=== PATIENT | female | born 1975 | race Caucasian/White ===

== ENCOUNTER 2016-08-18 14:29 | Emergency (ER) | payer SELFPAY ==
--- NOTE | 2016-08-18 15:16 | Emergency Department Report ---
Entered by JESSE PARR, acting as scribe for CHEN SALES NP. Chief Complaint: Urogenital-Female Stated Complaint: KIDNEY PAIN,UTI - HPI History of Present Illness: 40 y/o female, nontoxic, NAD, well developed, PMHx of renal failure and kidney stones c/o UTI. Associated clear vaginal discharge, burning and painful urination, increased urinary frequency, and back pain radiating to the pelvic area. Denies, abdominal pain, fever, NVD, chills, JOHNS, CP, SOB, blurry vision, dizziness. Patient states symptoms are consistent with past UTI - Exam Vital Signs: Vital Signs 08/18/16 14:38 Temperature 98.6 F Pulse Rate 80 Respiratory 18 Rate Blood Pressure 156/103 O2 Sat by Pulse 100 Oximetry Physical Exam: GENERAL: The patient is a well-developed, well-nourished male in no apparent distress. Patient is alert and oriented x3. ABDOMEN: Soft, nontender, and nondistended. Positive bowel sounds. Positive left CVA tenderness. Positive pelvic pain. No hepatosplenomegaly was noted. No guarding or rebound tenderness, negative epigastric bruit. Negative psoas sign, negative wilde sign, negative McBurneys sign MSE screening note: Focused history and physical exam performed. Due to findings the following was ordered: CBC, CMP, UA, Serum test ED Disposition for MSE Condition: Stable This documentation as recorded by the scribe,JESSE PARR,accurately reflects the service I personally performed and the decisions made by me,CHEN SALES, JOYA.
[2016-08-18 15:31] LABS: Basophils % (Auto) 0.5 % (0.0-1.8); Eosinophils % (Auto) 2.4 % (0.0-4.3); Hematocrit 40.7 % (30.3-42.9); Hemoglobin 13.6 gm/dl (10.1-14.3); Mean Corpuscular HGB Conc 33 % (30-34); Mean Corpuscular Hemoglobin 28 pg (28-32); Mean Corpuscular Volume 85 fl (79-97); Platelet Count 260 K/mm3 (140-440); Red Blood Count 4.78 M/mm3 (3.65-5.03); White Blood Count 9.6 K/mm3 (4.5-11.0)
[2016-08-18 15:51] LABS: Bilirubin,Urine NEG (Negative); Blood,Urine MOD (Negative); Ketones,Urine NEG (Negative); Leukocyte Esterase,Urine TR (Negative); Nitrite,Urine NEG (Negative); Urobilinogen,Urine < 2.0 mg/dL (<2.0)
[2016-08-18 15:52] LABS: Alanine Aminotransferase 17 units/L (7-56); Albumin 4.2 g/dL (3.9-5); Albumin/Globulin Ratio 1.2 %; Alkaline Phosphatase 85 units/L (35-129); Anion Gap 20 mmol/L; Blood Urea Nitrogen 10 mg/dL (7-17); Calcium 8.9 mg/dL (8.4-10.2); Carbon Dioxide 22 mmol/L (22-30); Chloride 98.1 mmol/L (98-107); Glucose 161 mg/dL (65-100); Potassium 3.7 mmol/L (3.6-5.0); Sodium 136 mmol/L (137-145); Total Protein 7.6 g/dL (6.3-8.2)
[2016-08-18 15:53] LABS: Mucus,Urine FEW /HPF
[2016-08-19] MEDS ORDERED: NACL 0.9% 1000 ML 1,000 ML IV ONE (08:59)
[2016-08-19] MEDS ORDERED: TORADOL IV ONE (08:59)
[2016-08-19] MEDS ORDERED: NACL 0.9% 1000 ML 1,000 ML ONE (08:59)
[2016-08-19] MEDS ORDERED: ZOFRAN IV ONE (08:59)
[2016-08-19] MEDS ORDERED: TORADOL ONE (08:59)
[2016-08-19] MEDS ORDERED: ZOFRAN ONE (08:59)
--- NOTE | 2016-08-19 09:03 | Emergency Department Report ---
ED Abdominal Pain HPI - General Chief Complaint: Urogenital-Female Stated Complaint: KIDNEY PAIN,UTI Time Seen by Provider: 08/19/16 08:48 Source: patient Mode of arrival: Ambulatory Limitations: No Limitations - History of Present Illness Initial Comments: 40-year-old female presents to the emergency department complaining of possible UTI. She states for the past 2 days she has been having left-sided kidney pain. She reports associated urinary frequency, urgency, and burning. She also reports lower back pain radiating into her pelvis. Patient denies seeing any blood. She also denies fever. She does report nausea and vomiting. There are no other complaints. MD Complaint: flank pain -: Gradual, days(s) (2) Location: L flank Radiation: none Migration to: no migration Severity: severe Severity scale (0 -10): 8 Quality: sharp Consistency: intermittent Improves With: nothing Worsens With: nothing Associated Symptoms: nausea, vomiting, dysuria - Related Data Previous Rx's Medication Instructions Recorded Last Taken Type Pantoprazole Sodium [Protonix] 40 mg PO DAILY #30 tablet. 06/19/14 11/08/14 Rx Promethazine [Phenergan TAB] 25 mg PO Q6H PRN #14 tablet 08/19/16 Unknown Rx oxyCODONE /ACETAMINOPHEN [Percocet 1 tab PO Q6HR PRN #20 tablet 08/19/16 Unknown Rx 5/325] Allergies Allergy/AdvReac Type Severity Reaction Status Date / Time No Known Allergies Allergy Verified 10/22/15 02:21 ED Review of Systems ROS: Stated complaint: KIDNEY PAIN,UTI Other details as noted in HPI Comment: All other systems reviewed and negative Gastrointestinal: as per HPI, nausea, vomiting Genitourinary: urgency, dysuria, frequency Musculoskeletal: back pain ED Past Medical Hx - Past Medical History Previous Medical History?: Yes Hx Hypertension: Yes (PIH) Hx CVA: No Hx Heart Attack/AMI: No Hx Congestive Heart Failure: No Hx Diabetes: Yes (not on meds) Hx Deep Vein Thrombosis: No Hx Pulmonary Embolism: No Hx GERD: No Hx Liver Disease: Yes (hx chronic pancreatitis last 2 mths ago) Hx Sickle Cell Disease: No Hx Arthritis: No Hx Headaches / Migraines: No Hx Seizures: No Hx Kidney Stones: Yes (laser treatment) Hx Psychiatric Treatment: No Hx Asthma: Yes Hx COPD: No Hx Dementia: No Hx HIV: No Additional medical history: Chronic pancreatitis, chronic renal insufficiency, Jaundice - Surgical History Past Surgical History?: Yes Hx Coronary Stent: No Hx Open Heart Surgery: No Hx Pacemaker: No Hx Internal Defibrillator: No Hx Cholecystectomy: Yes (Age 17) Hx Appendectomy: No Hx Breast Surgery: No Additional Surgical History: 3 x kindey stent replaced (Dr Connor), 3 hernia repairs, surgery for adhesions - Family History Family history: no significant - Social History Smoking Status: Never Smoker Substance Use Type: None - Medications Home Medications: Home Medications Medication Instructions Recorded Confirmed Last Taken Type Pantoprazole Sodium [Protonix] 40 mg PO DAILY #30 tablet. 06/19/14 11/10/14 Rx Promethazine [Phenergan TAB] 25 mg PO Q6H PRN #14 tablet 08/19/16 Unknown Rx oxyCODONE /ACETAMINOPHEN [Percocet 1 tab PO Q6HR PRN #20 tablet 08/19/16 Unknown Rx 5/325] ED Physical Exam - General Limitations: No Limitations General appearance: alert, in no apparent distress - Head Head exam: Present: atraumatic, normocephalic - Eye Eye exam: Present: normal appearance, PERRL, EOMI - ENT ENT exam: Present: normal exam, normal orophraynx, mucous membranes moist - Neck Neck exam: Present: normal inspection, full ROM. Absent: tenderness - Respiratory Respiratory exam: Present: normal lung sounds bilaterally. Absent: respiratory distress - Cardiovascular Cardiovascular Exam: Present: regular rate, normal rhythm, normal heart sounds - GI/Abdominal GI/Abdominal exam: Present: soft, tenderness (mild left lower quadrant and left flank tenderness to palpation), normal bowel sounds. Absent: distended, guarding, rebound - Extremities Exam Extremities exam: Present: normal inspection, full ROM. Absent: tenderness - Back Exam Back exam: Present: normal inspection, full ROM, tenderness, CVA tenderness (L) . Absent: CVA tenderness (R), muscle spasm, paraspinal tenderness, vertebral tenderness - Neurological Exam Neurological exam: Present: alert, oriented X3. Absent: motor sensory deficit - Skin Skin exam: Present: warm, dry, intact ED Course Vital Signs 08/18/16 08/19/16 08/19/16 14:38 03:22 08:07 Temperature 98.6 F 98.8 F Pulse Rate 80 96 H 87 Respiratory 18 14 18 Rate Blood Pressure 156/103 154/105 Blood Pressure 143/92 [Left] O2 Sat by Pulse 100 98 96 Oximetry 08/19/16 08/19/16 08:08 11:08 Temperature Pulse Rate 88 Respiratory 16 Rate Blood Pressure Blood Pressure 127/76 [Left] O2 Sat by Pulse 95 97 Oximetry ED Medical Decision Making - Lab Data Result diagrams: 08/18/16 15:14 08/18/16 15:14 - Radiology Data Radiology results: report reviewed CT of the abdomen and pelvis reveals 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 There appeared to be multiple stones in the inferior moiety. There is a 6 x 7 x 9 mm stone in the superior moiety. There are no other acute abnormalities. - Medical Decision Making Lab and imaging results reviewed and discussed with the patient. I spoke with Dr. Connor, urology. Patient will be discharged home at this time to follow- up as an outpatient. - Differential Diagnosis UTI, pyelonephritis, renal stone, renal failure Critical care attestation.: If time is entered above; I have spent that time in minutes in the direct care of this critically ill patient, excluding procedure time. ED Disposition Clinical Impression: Ureterolithiasis Disposition: DISCHARGED TO HOME OR SELFCARE Is pt being admited?: No Condition: Stable Instructions: Kidney Stones (ED) Prescriptions: oxyCODONE /ACETAMINOPHEN [Percocet 5/325] 1 tab PO Q6HR PRN #20 tablet PRN Reason: Pain Promethazine [Phenergan TAB] 25 mg PO Q6H PRN #14 tablet PRN Reason: Nausea Referrals: ISABEL CONNOR MD [Staff Physician] - 3-5 Days Time of Disposition: 11:22
[2016-08-19] MEDS ORDERED: MORPHINE IV ONE (09:23)
--- NOTE | 2016-08-19 10:00 | Cat Scan Report ---
CT OF THE ABDOMEN AND PELVIS WITHOUT CONTRAST HISTORY: Left flank pain. TECHNIQUE: Helical CT without contrast. Sagittal and coronal reformatted images. FINDINGS: Compared to 10/31/15 CT abdomen pelvis with contrast. The right kidney and right renal collecting system are normal. A duplicated collecting system is evident in the left kidney. There are 3 or 4 calyceal stones in the superior moiety measuring up to 3 mm. There are 2 or 3 calyceal stones in the inferior moiety measuring up to 2 mm. There is a new left ureteral stone in the upper moiety ureter measuring 6 x 7 x 9 mm. There is mild pyelocaliectasis in the superior moiety. The ureters appear to fuse at the approximate L4 level. The UVJs and bladder are normal. The gallbladder has been surgically removed. Ventral wall hernia changes are again noted and unchanged. The liver, pancreas, spleen, right adrenal gland, bowel loops, uterus and adnexa are within normal limits. 1 cm left adrenal adenoma is unchanged. The bony structures are intact. The visualized lung bases are clear. Normal heart size. IMPRESSION: Left nephrolithiasis as described above. 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 There is a new left ureteral stone in the superior moiety of the duplicated collecting system measuring 9 mm which minimally obstructs. Please see above.
[2016-08-19] MEDS ORDERED: DILAUDID IV ONE (10:09)
[2016-08-19 11:08] VITALS: BP 127/76
== END 2016-08-19 11:37 | disposition home or self-care (01) ==
LOC: ED 14:29
DX: N20.1 Calculus of ureter (principal); I10 Essential (primary) hypertension; E11.9 Type 2 diabetes mellitus without complications
CPT/HCPCS: 36415; 74176; 80053; 81001; 84703; 85025; 96361; 96374; 96375; 99284; J1170; J1885; J2270; J2405; J7030

== ENCOUNTER 2016-09-24 06:54 | Day surgery (SDC) | payer MEDICAID ==
[2016-09-24] MEDS ORDERED: NACL 0.9% 1000 ML 1,000 ML IV SCH (10:00)
--- NOTE | 2016-09-24 10:55 | Discharge Summary ---
Providers - Providers Date of discharge: 09/24/16 Attending physician: SCOOBY ROSS Primary care physician: EMILY COLINDRES Hospitalization Condition: Good Disposition: DC-01 TO HOME OR SELFCARE Core Measure Documentation - Palliative Care Palliative Care/ Comfort Measures: Not Applicable - Core Measures Any of the following diagnoses?: none Exam - Physical Exam Narrative exam: unchanged from pre-op - Constitutional Vitals: Temp Pulse Resp BP Pulse Ox 98.3 F 72 129/83 19 L 09/24/16 09:51 09/24/16 09:51 09/24/16 09:51 09/24/16 09:51 Plan Activity: no restrictions Diet: regular Follow up with: EMILY COLINDRES MD [Primary Care Provider] - 7 Days
--- NOTE | 2016-09-24 10:56 | Operative Report ---
Operative Report Operative Report: OPERATIVE REPORT - EGD DATE 09/24/16 SURGERY: Upper endoscopy. SURGEON: Elizabeth Rao M.D. PELOTA MAKER: n/a PRE OP DX:dypspepsia POST OP DX:hiatal hernia TYPE OF ANESTHESIA: MAC. ESTIMATED BLOOD LOSS: None. COMPLICATIONS: None. SPECIMENS REMOVED: None. FINDINGS: 1. Small hiatal hernia. 2. Otherwise, normal esophagus, stomach and first portion of duodenum. INDICATIONS:INDICATION FOR PROCEDURE: Patient is a 41-year-old female with a long history of morbid obesity. She is planned to have a weight loss procedure and is here for preoperative planning EGD. PROCEDURE DETAILS: After consent was reviewed, patient was taken back to the operating room where patient was placed in the left lateral decubitus position and a bite block was placed in the mouth. After a time-out was called, MAC anesthesia was initiated. I then passed the endoscope into her oropharynx, into her esophagus, visualized the entire esophagus, which was all within normal limits. I then visualized the stomach and the first portion of the duodenum and there were no abnormalities I could clearly visualize. I then retroflexed the scope in the stomach and visualized the hiatus and I could see a small hiatal hernia. I then desufflated the stomach and removed the endoscope. Patient tolerated procedure well and was transferred to recovery room in good and stable condition.
[2016-09-24] MEDS ORDERED: DIPRIVAN 10 MG/ML IV ONE ×2 (11:37)
--- NOTE | 2016-09-24 12:42 | Anesthesia Consultation ---
Anesthesia Consult and Med Hx Date of service: 09/24/16 - Airway Anesthetic Teeth Evaluation: Good ROM Head & Neck: Adequate Mental/Hyoid Distance: Adequate Mallampati Class: Class II Intubation Access Assessment: Probably Good - Pulmonary Exam CTA: Yes - Cardiac Exam Cardiac Exam: RRR - Pre-Operative Health Status ASA Pre-Surgery Classification: ASA3 Proposed Anesthetic Plan: MAC - Pulmonary Hx Smoking: Yes (stopped 5 yrs ago) Hx Asthma: Yes COPD: No Hx Pneumonia: No - Cardiovascular System Hx Hypertension: Yes (PIH) Hx Coronary Artery Disease: No Hx Heart Attack/AMI: No Hx Angina: No Hx Percutaneous Transluminal Coronary Angioplasty (PTCA): No Hx Pacemaker: No Hx Internal Defibrillator: No Hx Valvular Heart Disease: No Hx Heart Murmur: No Hx Peripheral Vascular Disease: No - Central Nervous System Hx Seizures: No CVA: No Hx Psychiatric Problems: No - Gastrointestinal Hx Gastroesophageal Reflux Disease: Yes (h/o pancreatitis 2011) - Endocrine Hx Renal Disease: Yes (ureteral stone; pt has occluded stent) Hx End Stage Renal Disease: No Hx Liver Disease: Yes (hx chronic pancreatitis last 2 mths ago) Hx Non-Insulin Dependent Diabetes: Yes (diet controlled; no longer on meds) Hx Hypothyroidism: No Hx Hyperthyroidism: No - Hematic Hx Anemia: No Hx Sickle Cell Disease: No - Other Systems Hx Alcohol Use: No Hx Substance Use: No Hx Cancer: No Hx Obesity: Yes
--- NOTE | 2016-09-24 12:42 | Anesthesia Day of Surgery ---
Anesthesia Day of Surgery - Day of Surgery Patient Examined: Yes Patient H&P Reviewed: Yes Patient is NPO: Yes
[2016-09-24 13:10] VITALS: BP 132/77
--- NOTE | 2016-09-24 13:35 | Post Anesthesia Evaluation ---
- Post Anesthesia Evaluation Patient Participated: Yes Airway Patent: Yes Stable Respiratory Function: Yes Nausea/Vomiting: No Temp > 96.8F: Yes Pain Manageable: Yes Adequeate Hydration: Yes Anesthesia Complications: No Block Receding Appropriately: Not Applicable Patient on Ventilator: No
== END 2016-09-24 06:55 | disposition home or self-care (01) ==
LOC: GIO 06:54
PROVIDERS: ATTEND Surgery
DX: K44.9 Diaphragmatic hernia without obstruction or gangrene (principal); E11.22 Type 2 diabetes mellitus with diabetic chronic kidney disease; K21.9 Gastro-esophageal reflux disease without esophagitis; J45.909 Unspecified asthma, uncomplicated; I10 Essential (primary) hypertension; E78.4 Other hyperlipidemia; E03.9 Hypothyroidism, unspecified; E66.01 Morbid (severe) obesity due to excess calories; Z68.42 Body mass index [BMI] 45.0-49.9, adult; Z87.891 Personal history of nicotine dependence; Z87.19 Personal history of other diseases of the digestive system; Z87.442 Personal history of urinary calculi; Z98.890 Other specified postprocedural states; Z83.3 Family history of diabetes mellitus; Z82.49 Family history of ischemic heart disease and other diseases of the circulatory system; Z80.9 Family history of malignant neoplasm, unspecified
CPT/HCPCS: 43235; 81025; 82962; J2704

== ENCOUNTER 2016-12-03 08:03 | Inpatient (IN) | payer MEDICAID ==
[~2016-12-03 08:03] MED LIST: DIPRIVAN 10 MG/ML IV ONE; SUBLIMAZE ONE; XYLOCAINE MPF 2% ONE; ZEMURON IV ONE
[2016-12-03] MEDS ORDERED: FLAGYL 500 MG/100 ML 500 MG/100 ML BAG IV NR (09:00)
[2016-12-03] MEDS ORDERED: ANCEF/STERILE WATER 2 GM/20 ML 2 GM/20 ML SYRINGE IV NR (09:00)
--- NOTE | 2016-12-03 09:09 | Anesthesia Day of Surgery ---
Anesthesia Day of Surgery - Day of Surgery Patient Examined: Yes Patient H&P Reviewed: Yes Patient is NPO: Yes
--- NOTE | 2016-12-03 09:09 | Anesthesia Consultation ---
Anesthesia Consult and Med Hx Date of service: 12/03/16 - Airway Anesthetic Teeth Evaluation: Good (upper implant) ROM Head & Neck: Adequate Mental/Hyoid Distance: Adequate Mallampati Class: Class II Intubation Access Assessment: Probably Good - Pulmonary Exam CTA: Yes - Cardiac Exam Cardiac Exam: RRR - Pre-Operative Health Status ASA Pre-Surgery Classification: ASA3 Proposed Anesthetic Plan: General - Pulmonary Hx Smoking: Yes (stopped 5 yrs ago) COPD: No Hx Pneumonia: No - Cardiovascular System Hx Hypertension: Yes (PIH) Hx Coronary Artery Disease: No Hx Heart Attack/AMI: No - Central Nervous System Hx Seizures: No CVA: No Hx Psychiatric Problems: No - Gastrointestinal Hx Gastroesophageal Reflux Disease: Yes (h/o pancreatitis 2011) - Endocrine Hx Renal Disease: Yes (ureteral stone; pt has occluded stent) Hx End Stage Renal Disease: No Hx Liver Disease: Yes (hx chronic pancreatitis last 2 mths ago) Hx Non-Insulin Dependent Diabetes: Yes (diet controlled; no longer on meds) - Hematic Hx Anemia: No Hx Sickle Cell Disease: No - Other Systems Hx Alcohol Use: Yes (occas) Hx Substance Use: No Hx Cancer: No Hx Obesity: Yes - Additional Comments Anesthesia Medical History Comments: NAC
[2016-12-03] MEDS ORDERED: NACL BACTERIOSTATIC INFILTRATI ONE (09:10)
[2016-12-03 09:47] LABS: Basophils % (Auto) 0.5 % (0.0-1.8); Eosinophils % (Auto) 2.3 % (0.0-4.3); Hematocrit 38.8 % (30.3-42.9); Hemoglobin 13.3 gm/dl (10.1-14.3); Mean Corpuscular HGB Conc 34 % (30-34); Mean Corpuscular Hemoglobin 30 pg (28-32); Mean Corpuscular Volume 86 fl (79-97); Platelet Count 254 K/mm3 (140-440); White Blood Count 9.7 K/mm3 (4.5-11.0)
[2016-12-03] MEDS ORDERED: LOVENOX SUB-Q NR (10:00)
[2016-12-03] MEDS ORDERED: VERSED IV NR (10:00)
[2016-12-03] MEDS ORDERED: PEPCID PO NR (10:00)
[2016-12-03] MEDS ORDERED: LACTATED RINGERS 1,000 ML IV SCH ×2 (10:00→12:00)
[2016-12-03] MEDS ORDERED: TRANSDERM-SCOP TD NR (10:00)
[2016-12-03 10:02] LABS: Alanine Aminotransferase 14 units/L (7-56); Albumin 4.1 g/dL (3.9-5); Albumin/Globulin Ratio 1.2 %; Alkaline Phosphatase 62 units/L (35-129); Anion Gap 20 mmol/L; Blood Urea Nitrogen 9 mg/dL (7-17); Calcium 8.5 mg/dL (8.4-10.2); Carbon Dioxide 22 mmol/L (22-30); Chloride 98.3 mmol/L (98-107); Glucose 128 mg/dL (65-100); Sodium 136 mmol/L (137-145); Total Protein 7.5 g/dL (6.3-8.2)
[2016-12-03] MEDS ORDERED: MARCAINE-EPI/PF 0.5%-1:200,000 INFILTRATI ONE ×2 (10:02→11:48)
[2016-12-03] MEDS ORDERED: XYLOCAINE 1% 20 mL ONE (10:02)
[2016-12-03] MEDS: PEPCID IV SCH (10:18)
[2016-12-03 10:27] LABS: Bacteria,Urine 1+ /HPF (Negative); Bilirubin,Urine NEG (Negative); Blood,Urine MOD (Negative); Ketones,Urine NEG (Negative); Leukocyte Esterase,Urine TR (Negative); Mucus,Urine FEW /HPF; Nitrite,Urine NEG (Negative); Urobilinogen,Urine < 2.0 mg/dL (<2.0)
[2016-12-03] MEDS ORDERED: APRESOLINE IV PRN (10:32)
[2016-12-03] MEDS ORDERED: DILAUDID IV PRN ×2 (10:32→15:01)
[2016-12-03] MEDS ORDERED: MORPHINE IV PRN (10:32)
[2016-12-03] MEDS ORDERED: REGLAN IV PRN (10:32)
[2016-12-03] MEDS ORDERED: ZOFRAN IV PRN (10:32)
[2016-12-03] MEDS ORDERED: DECADRON ONE (11:14)
[2016-12-03] MEDS ORDERED: NEOSTIGMINE ONE (11:16)
[2016-12-03] MEDS ORDERED: ROBINUL ONE (11:16)
[2016-12-03] MEDS ORDERED: XYLOCAINE 1% 20 mL INFILTRATI ONE (11:47)
[2016-12-03] MEDS ORDERED: NACL 0.9% IR ONE ×2 (11:47)
[2016-12-03] MEDS ORDERED: [UNRECOGNIZED DRUG - OTHER] TP ONE (11:48)
[2016-12-03] MEDS ORDERED: MYLICON PO PRN (11:59)
[2016-12-03] MEDS ORDERED: DILAUDID ONE (13:27)
[2016-12-03] MEDS: TORADOL IV SCH ×2 (13:43→20:33)
[2016-12-03] MEDS: DILAUDID IV PRN ×5 (13:45→20:32)
--- NOTE | 2016-12-03 13:46 | Operative Report ---
Operative Report Operative Report: BYPASS Template Operative Report DATE OF PROCEDURE: 12/03/16 SURGEON: Elizabeth Rao M.D. FRONT END ENGINEER: Nishant Maya CSA PREOPERATIVE DIAGNOSIS: Morbid obesity. POSTOPERATIVE DIAGNOSES: Morbid obesity PROCEDURES PERFORMED: 1. Laparoscopic gastric bypass. 2. extensive lysis of adhesions ANESTHESIA: General endotracheal tube intubation. SPECIMENS: None. ESTIMATED BLOOD LOSS: Less than 10 mL. FINDINGS: Normal anatomy. COMPLICATIONS: None. INDICATION: is a 41-year-old female with history of morbid obesity. She signed informed consent and expressed understanding of risks and benefits. DESCRIPTION OF PROCEDURE: Patient was brought to the OR suite, laid in supine position. Bilateral lower extremity SCDs were placed. General anesthesia was induced via successful endotracheal tube intubation. Patient's abdomen was prepped and draped in sterile fashion. Using Optiview technique, a 5-mm trocar was placed into the abdominal cavity under direct vision on the left side after the abdomen was insuflated with a veress needle in the LUQ to a pressure of 18mmHg. There was noted to be no gross injury to any intraabdominal structures. However, there was noted to be significant omental and colonic adhesions to her abdominal wall and ventral hernia meshes from previous hernia repairs. It took about 45 minutes with a Ligasure device to completely take down the adhesions in order place the working trocars and access the small bowel. 5 working trocars were placed under direct visualization, 12 mm in the right mid abdomen mid clavicular line and three 5-mm trocars in the right upper quadrant, epigastric, left upper quadrant and a 12mm left mid abdomen. At this time, the ligament of Treitz identified and followed down approximately 30 cm and the jejunum was transected. The distal segment of jejunum was then traced for approximately 75 cm and a stable [id number] jejunojejunostomy was performed. The common enterotomy was closed with 2 firings of the endoscopic stapler. The mesenteric defect was closed with running Surgidac suture. This anastomosis was found to be patent without kink, obstruction or bleeding. At this time, the patient was placed in steep reverse Trendelenburg position. A liver retractor was placed through the epigastric port to elevate the left lateral lobe of the liver. A small gastric pouch was formed. The Cristopher limb was then brought in an antegastric antecolic fashion and secured with 2 stay sutures to the gastric pouch. After this, the enterotomies were made with Harmonic scalpel, and a [id number]-ialy stapled gastrojejunostomy was performed with a mechanical stapler. After this, a 2-layer running closure using absorbable v-lock suture were done, the first being mucosal approximation prior to completion of the first layer. The anesthesia passed and an EGD scope beyond the anastomosis to act as a stent. The first layer was completed, the second was then performed. After this, the EGD was retracted slightly. A bowel clamp was placed in a proximal Cristopher limb. The anastomosis was submerged under saline. Via intraluminal EGD insufflation, there was noted be no bubbles in the saline indicating an airtight anastomosis. There was noted to be no obstruction or bleeding intraluminally in the pouch or the anastomosis. At this time, the scope was removed. The saline was aspirated. Tiseel was placed over the anastomosis. All trocars were removed under direct visualization and the abdomen was then desufflated. The skin incisions were closed with 4-0 Monocryl followed by Dermabond dressings. Patient was awoken and taken to recovery in stable condition. All counts were correct.
[2016-12-03] MEDS ORDERED: DILAUDID IV ONE (15:00)
[2016-12-03] MEDS: ANCEF/NS 1 GM/50 ML 1 GM/50 ML BAG IV SCH (17:23)
[2016-12-04] MEDS: DILAUDID IV PRN ×2 (00:26→04:43)
[2016-12-04] MEDS: ANCEF/NS 1 GM/50 ML 1 GM/50 ML BAG IV SCH (02:42)
[2016-12-04] MEDS: TORADOL IV SCH ×3 (02:44→13:22)
[2016-12-04 06:23] LABS: Basophils % (Auto) 0.3 % (0.0-1.8); Hematocrit 35.4 % (30.3-42.9); Hemoglobin 11.9 gm/dl (10.1-14.3); Mean Corpuscular HGB Conc 34 % (30-34); Mean Corpuscular Hemoglobin 29 pg (28-32); Mean Corpuscular Volume 87 fl (79-97); Platelet Count 251 K/mm3 (140-440); Red Blood Count 4.06 M/mm3 (3.65-5.03); Red Cell Distribution Width 13.4 % (13.2-15.2); White Blood Count 14.7 K/mm3 (4.5-11.0)
[2016-12-04 06:35] LABS: Alanine Aminotransferase 28 units/L (7-56); Albumin 3.8 g/dL (3.9-5); Albumin/Globulin Ratio 1.4 %; Alkaline Phosphatase 59 units/L (35-129); Anion Gap 20 mmol/L; Blood Urea Nitrogen 14 mg/dL (7-17); Calcium 8.4 mg/dL (8.4-10.2); Carbon Dioxide 23 mmol/L (22-30); Chloride 101.1 mmol/L (98-107); Glucose 130 mg/dL (65-100); Potassium 4.1 mmol/L (3.6-5.0); Sodium 140 mmol/L (137-145); Total Protein 6.6 g/dL (6.3-8.2)
[2016-12-04] MEDS: NORCO PO PRN ×3 (08:30→19:08)
[2016-12-04] MEDS: PEPCID IV SCH (08:31)
--- NOTE | 2016-12-04 08:49 | Admit Criteria Form ---
Admission Criteria Documentation: AMBULATORY SURGERY EXCEPTION CRITERIA Ambulatory Surgery Exception Criteria ( Place 'X' for any and all applicable criteria): Surgery or procedure performed on ambulatory basis may require inpatient stay for[A] ANY ONE of the following(1)(2)(3)(4)(5)(6)(7)(8)(9): [X] I. A preoperative situation, condition, or finding that warrants inpatient stay as indicated by ANY ONE of the following: [] a) Inpatient care needed because of severity of a disease or condition rather than the surgery (eg, severe cardiac or respiratory disease, severe infection) (15) (16 ) (17) (18) [] b) Emergent procedure (eg, angioplasty for acute ischemia)(19) [] c) Complex surgical approach or situation as indicated by ANY ONE of the following(3): [] i) Open approach needed instead of usual endoscopic, transcatheter, or other less invasive procedure [] ii) Difficult approach because of previous operation [] iii) Airway monitoring required after open neck procedures(20)(21) [] iv) Large mass requiring unusually extensive dissection [] v) Additional complicating feature requiring inpatient care (eg, drain management)(22(23): [X] d) Major surgery in a pt with high anesthetic risk as indicated by ANY ONE of the following (2)(3)(5)(7)(8): [X] i) ASA risk class III or higher (severe systemic disease impairing function) [D] [] ii) Advanced age (eg, older than 85 years)(14)(24) [] iii) Symptomatic heart failure(25) [] iv) Symptomatic asthma or COPD(8)(21) [] v) Morbid obesity with hemodynamic or respiratory problems(20)( 21)(26)(27) [] vi) Obstructive sleep apnea(20)(21) [] vii) Former premature infants who are younger than 60 weeks [] viii) High risk for severe postoperative abnormalities (eg, severe postoperative hypocalcemia after parathyroidectomy for severe hyperparathyroidism)(27)( 28) [] ix) Unstable angina(25) [] e) Drug-related risk requiring inpatient stay as indicated by ANY ONE of the following(5)(10)(14)(32)(33) [] i) Procedure requires discontinuing drugs or other therapy (eg , antiarrhythmic medication, antiseizure medication), which necessitates inpatient observation or treatment.(18)(31) [] ii) Major surgery and high risk drug use as indicated by ANY ONE of the following: [] 1) Active abuse of cocaine or similar drug [] 2) Monoamine oxidase inhibitor use [] 3) Other drug identified as posing risk [] f) Inadequate outpatient care situation as indicated by ANY ONE of the following(5)(10)(14)(32)(33) [] i) Patient lives remote from medical facility and procedure has urgent complication potential, and temporary nearby residence cannot be arranged [] ii) Patient will have postprocedure incapacitation and inadequate assistance at home, or alternative level of care cannot be arranged. [] iii) Patient will have long general anesthesia or procedure side effect resolution time, and competent person to stay with patient on first postoperative night at home or alternative level of care cannot be arranged. []iv) Other inadequate outpatient situation that cannot be handled by other means [] II. A perioperative event, condition, or finding that warrants inpatient stay as indicated by ANY ONE of the following (1)(2)(3): [] a) Inadequate physiologic recovery: cardiovascular, respiratory, or hemodynamic status not normal or near preoperative baseline(18) [] b) Hemodynamic instability [] c) Patient not alert with near normal or baseline mental status [] d) Temperature not normal or as expected and not appropriate for outpatient treatment of condition [] e) Ambulatory or appropriate activity level status not yet achieved post procedure [E](34)(35)(36) [] f) Operative site not appropriate (eg, unexpected or excessive drainage or bleeding) [] g) Postoperative effects not resolved or adequately managed (eg, significant pain or vomiting not appropriate for outpatient or next level of care)(10)(12) [] h) Complicating features requiring inpatient care as indicated by ANY ONE of the following(37): [] i) Severe complications of procedure (eg, bowel injury, airway compromise, vascular injury,severe hemorrhage) [] ii) Extensive (eg, dissection far beyond usual scope of procedure ) or prolonged (eg, 120 minutes beyond usual) surgery needed requiring inpatient postoperative care [] iii) Conversion to an open or complex procedure that requires inpatient care (eg, open vs laparoscopic cholecystectomy, abdominal vs vaginal hysterectomy)(38) [] iv) Comorbid condition or test result identified during or post procedure that requires inpatient care (7) [] v) Malignant hyperthermia(30) [] vi) Other complicating feature requiring inpatient care(22)(23) Inpatient stay may be needed until ALL of the following are present (1)(2)(3)(4) (5)(6)(10)(14)(33)(40): []a) Physiologic recovery: cardiovascular, respiratory, and hemodynamic status normal or near preoperative baseline []b) Hemodynamic stability []c) Patient alert, with near normal or baseline mental status []d) Temperature appropriate: patient afebrile or temperature appropriate for outpt treatment of condition []e) Activity level appropriate: ambulatory or appropriate activity level post procedure []f) Operative site appropriate as indicated by ALL of the following: []i) Site dry or with expected drainage []ii) Any blood noted is as expected for procedure. []g) Postoperative effects resolved or managed as indicated by ALL of the following: []i) Pain management appropriate for outpatient (or next level of) care(10) []ii) Minimal nausea and vomiting: if present, successfully treated with oral medication(12) []iii) Headache, dizziness, or drowsiness (if present) are mild. []h) Voiding status acceptable as indicated by ANY ONE of the following: []i) Voiding spontaneously []ii) No voiding but instructions given for follow-up in 6 to 8 hours []iii) Urinary catheter in place, and instructions given for follow-up []i) Complicating features requiring inpatient care manageable at a lower level of care(37) []j) Comorbid conditions manageable at a lower level of care(37) The original [employer] content created by [employer] has been revised. The portions of the content which have been revised are identified through the use of italic text or in bold, and [facility] [employer] has neither reviewed nor approved the modified material. All other unmodified content is copyright [employer]. Please see references footnoted in the original [employer] edition 2016 Admission Criteria Met: Yes
[2016-12-04] MEDS ORDERED: LOVENOX SUB-Q SCH (10:00)
--- NOTE | 2016-12-04 11:06 | Discharge Summary ---
Providers - Providers Date of Admission: 12/03/16 08:03 Date of discharge: 12/04/16 Attending physician: SCOOBY ROSS Primary care physician: EMLIY COLINDRES Hospitalization Condition: Good Procedures: laparoscopic gastric bypass. Hospital course: 41 y.o. F admitted for lap gastric bypass. Pt tolerated the procedure well. ON POD 1 she tolerated clears. She denies any n/v. She is able to ambulate and her pain is controlled. Disposition: DC-01 TO HOME OR SELFCARE Core Measure Documentation - Palliative Care Palliative Care/ Comfort Measures: Not Applicable - Core Measures Any of the following diagnoses?: none Exam - Physical Exam Narrative exam: VSS cardio: RRR lungs: CTA BL Abd: soft, obese, tender incision sites. incisions are cdi. ext: no c/c/e - Constitutional Vitals: Temp Pulse Resp BP Pulse Ox 98.9 F 101 H 18 120/78 97 12/04/16 08:00 12/04/16 08:00 12/04/16 08:00 12/04/16 08:00 12/04/16 08:00 Plan Activity: other (no lifting >15lbs for 6 weeks ) Diet: clear liquids (sugar free clears ) Wound: other (july shower Wednesday) Additional Instructions: Follow up in office for wound check. Follow up with: EMILY COLINDRES MD [Primary Care Provider] - 7 Days
[2016-12-04 13:22] VITALS: BP 120/78
--- NOTE | 2016-12-04 14:10 | Progress Note ---
Subjective Date of service: 12/04/16 Interval history: POD 1, Pt has no anesthesia complication. Pain is well controlled at 6/10 with oral pain meds. No N/V. Ambulated well. Being discharged by surgeon Objective - Constitutional Vitals: Vital Signs - 12hr 12/04/16 12/04/16 12/04/16 02:44 03:14 04:23 Temperature Pulse Rate 96 H Respiratory 20 20 Rate Blood Pressure [Left] O2 Sat by Pulse 97 Oximetry 12/04/16 12/04/16 12/04/16 04:43 05:13 06:57 Temperature Pulse Rate Respiratory 20 16 20 Rate Blood Pressure [Left] O2 Sat by Pulse Oximetry 12/04/16 12/04/16 12/04/16 08:00 13:00 13:05 Temperature 98.9 F 98.7 F Pulse Rate 101 H Respiratory 18 18 Rate Blood Pressure 120/78 120/78 [Left] O2 Sat by Pulse 97 96 Oximetry 12/04/16 13:06 Temperature Pulse Rate 84 Respiratory Rate Blood Pressure [Left] O2 Sat by Pulse 95 Oximetry - Labs CBC & Chem 7: 12/04/16 05:39 12/04/16 05:39 Labs: Abnormal lab results 12/03/16 12/03/16 12/04/16 Range/Units 16:40 22:23 05:39 WBC 14.7 H (4.5-11.0) K/mm3 [place] % (Auto) 8.2 H (0.0-7.3) % [place] # 1.2 H (0.0-0.8) K/mm3 Seg Neutrophils % 76.0 H (40.0-70.0) % Seg Neutrophils # 11.2 H (1.8-7.7) K/mm3 Creatinine (0.7-1.2) mg/dL Glucose (65-100) mg/dL POC Glucose 198 H 163 H (70-105) Albumin (3.9-5) g/dL 12/04/16 Range/Units 05:39 WBC (4.5-11.0) K/mm3 [place] % (Auto) (0.0-7.3) % [place] # (0.0-0.8) K/mm3 Seg Neutrophils % (40.0-70.0) % Seg Neutrophils # (1.8-7.7) K/mm3 Creatinine 0.4 L (0.7-1.2) mg/dL Glucose 130 H (65-100) mg/dL POC Glucose (70-105) Albumin 3.8 L (3.9-5) g/dL
[2016-12-06] MEDS ORDERED: TRANSDERM-SCOP TD SCH (10:00)
== END 2016-12-04 19:45 | disposition home or self-care (01) | DRG 620 ==
LOC: 3A 08:03 → 3B-SURG 16:41
PROVIDERS: ADMIT Surgery; ATTEND Surgery
PROC: 0D164ZA Bypass Stomach to Jejunum, Percutaneous Endoscopic Approach (ICD-10-PCS; principal; 2016-12-03)
PROC: 0DNA4ZZ Release Jejunum, Percutaneous Endoscopic Approach (ICD-10-PCS; 2016-12-03)
DX: E66.01 Morbid (severe) obesity due to excess calories (principal); K86.1 Other chronic pancreatitis; Z87.891 Personal history of nicotine dependence; I10 Essential (primary) hypertension; E11.9 Type 2 diabetes mellitus without complications; Z68.42 Body mass index [BMI] 45.0-49.9, adult
CPT/HCPCS: 36415; 80053; 81001; 81025; 82962; 85025; A4217; C9250; J0690; J1100; J1170; J1650; J1885; J2250; J2405; J2704; J2710; J2765; J3010; J7120

== ENCOUNTER 2018-06-08 09:22 | Outpatient (CLI) | payer MEDICAID ==
--- NOTE | 2018-06-08 13:35 | Ultrasound Report ---
ULTRASOUND PELVIC COMPLETE ULTRASOUND TRANSVAGINAL HISTORY: Pelvic and perineal pain. COMPARISON: CT abdomen pelvis without contrast dated 08/19/16. TECHNIQUE: Transabdominal and transvaginal ultrasound with color doppler interrogation. FINDINGS: Uterus: The uterus is anteverted. The uterus measures 10.3 x 4.0 x 5.5 cm. No uterine fibroids are identified. A 1 cm nabothian cyst is noted in the anterior cervix. Endometrium: 8 mm. No focal abnormality. Right ovary: 3.4 x 1.6 2.6 cm. A 2.1 cm slightly complex cyst containing internal debris is identified in the right adnexal region. This appears to represent an exophytic cyst from the right ovary. Left ovary: 2.1 x 2.9 x 2.2 cm. No focal abnormality. No significant pelvic fluid or mass is identified. Normal color doppler interrogation. IMPRESSION: 2.1 cm slightly complex cyst in the right adnexa as described. Consider followup in 6 weeks at a different stage of the menstrual cycle. 1 cm nabothian cyst in the cervix.
== END 2018-06-08 09:23 | disposition home or self-care (01) ==
LOC: US 09:22
PROVIDERS: ATTEND Internal Medicine Hematology & Oncology
DX: N88.8 Other specified noninflammatory disorders of cervix uteri (principal); N83.8 Other noninflammatory disorders of ovary, fallopian tube and broad ligament; D68.9 Coagulation defect, unspecified; E78.00 Pure hypercholesterolemia, unspecified; I10 Essential (primary) hypertension; J45.909 Unspecified asthma, uncomplicated; E66.9 Obesity, unspecified; Z87.891 Personal history of nicotine dependence; Z90.49 Acquired absence of other specified parts of digestive tract
CPT/HCPCS: 76830; 76856

== ENCOUNTER 2019-06-17 21:12 | Emergency (ER) | payer MEDICAID ==
--- NOTE | 2019-06-17 22:18 | Event Note ---
ED Screening Note Date of service: 06/17/19 Time: 22:12 ED Screening Note: 43 y/o female comes in for 1 months of abd pain mostly on the left side. Reports that she was told that she may have colon cancer. She is waiting for insurance to approve colonoscopy. Having abdominal distention has gain weight having leg swelling. This initial assessment/diagnostic orders/clinical plan/treatment(s) is/are subject to change based on patients health status, clinical progression and re- assessment by fellow clinical providers in the ED. Further treatment and workup at subsequent clinical providers discretion. Patient/guardian urged not to elope from the ED as their condition may be serious if not clinically assessed and managed. Initial orders include:
[2019-06-17 23:12] LABS: Bilirubin,Urine NEG (Negative); Blood,Urine NEG (Negative); Color,Urine Straw (Yellow); Protein,Urine <15 mg/dL mg/dL (Negative); Urobilinogen,Urine < 2.0 mg/dL (<2.0); WBC,Urine < 1.0 /HPF (0.0-6.0)
[2019-06-17] MEDS ORDERED: ONDANSETRON 4 MG/2 ML INJ IV ONE (23:12)
[2019-06-17] MEDS ORDERED: MORPHINE 4 MG/1 ML INJ IV ONE (23:12)
[2019-06-17] MEDS ORDERED: SODIUM CHLORIDE 0.9% 1000 ML 1,000 ML IV ONE (23:12)
--- NOTE | 2019-06-17 23:16 | Emergency Department Report ---
ED Abdominal Pain HPI - General Chief Complaint: Abdominal Pain Stated Complaint: ADOMINAL PAIN/N/V,DIZZINESS,LOSS OF APPETITE Time Seen by Provider: 06/17/19 22:12 Source: patient Mode of arrival: Ambulatory Limitations: No Limitations - History of Present Illness Initial Comments: Patient is 43 years old female with history of hypertension, diabetes and a recent diagnosis of possible colon cancer. Patient presented to the ER complaining of increasing abdominal pain, nausea and vomiting started today. Patient stated that he she has been followed by her primary care physician who ordered CT abdomen and pelvis and PET scan before and now waiting for a colonoscopy but she was told that she has a possible colon cancer. Patient currently denying any fever or chills. MD Complaint: abdominal pain Location: LLQ Radiation: none Migration to: no migration Severity: moderate Severity scale (0 -10): 5 Quality: fullness, sharp Consistency: constant - Related Data Home Medications Medication Instructions Recorded Confirmed Last Taken Naproxen Sodium [Aleve TAB] 220 mg PO Q8H PRN 12/03/16 12/03/16 12/01/16 Allergies Allergy/AdvReac Type Severity Reaction Status Date / Time No Known Allergies Allergy Verified 12/01/16 09:30 ED Review of Systems ROS: Stated complaint: ADOMINAL PAIN/N/V,DIZZINESS,LOSS OF APPETITE Other details as noted in HPI Comment: All other systems reviewed and negative Constitutional: denies: chills, fever Respiratory: denies: cough, shortness of breath, SOB with exertion, SOB at rest Cardiovascular: denies: chest pain, palpitations Gastrointestinal: abdominal pain, nausea, vomiting. denies: diarrhea, constipation, hematemesis, melena Musculoskeletal: denies: back pain ED Past Medical Hx - Past Medical History Previous Medical History?: Yes Hx Hypertension: Yes (PIH) Hx CVA: No Hx Heart Attack/AMI: No Hx Congestive Heart Failure: No Hx Diabetes: Yes (diet controlled) Hx Deep Vein Thrombosis: No Hx Pulmonary Embolism: No Hx GERD: No Hx Liver Disease: Yes (hx chronic pancreatitis last 2 mths ago) Hx Renal Disease: Yes (ureteral stone; pt has occluded stent) Hx Sickle Cell Disease: No Hx Arthritis: No Hx Headaches / Migraines: Yes (migraines) Hx Seizures: No Hx Kidney Stones: Yes Hx Psychiatric Treatment: No Hx COPD: No Hx Dementia: No Hx HIV: No Additional medical history: Chronic pancreatitis, chronic renal insufficiency, Jaundice, Anemia - Surgical History Past Surgical History?: Yes Hx Coronary Stent: No Hx Open Heart Surgery: No Hx Cholecystectomy: Yes (Age 17) Hx Appendectomy: No Hx Breast Surgery: No Additional Surgical History: 3 x kindey stent replaced (Dr Connor), 3 hernia repairs, surgery for adhesions, Pancrease - Social History Smoking Status: Never Smoker Substance Use Type: None - Medications Home Medications: Home Medications Medication Instructions Recorded Confirmed Last Taken Type Naproxen Sodium [Aleve TAB] 220 mg PO Q8H PRN 12/03/16 12/03/16 12/01/16 History ED Physical Exam - General Limitations: No Limitations General appearance: alert, in no apparent distress - Head Head exam: Present: atraumatic, normocephalic, normal inspection - Eye Eye exam: Present: normal appearance - ENT ENT exam: Present: normal exam, normal orophraynx, mucous membranes moist - Neck Neck exam: Present: normal inspection, full ROM. Absent: tenderness, meningismus, lymphadenopathy, thyromegaly - Respiratory Respiratory exam: Present: normal lung sounds bilaterally. Absent: respiratory distress, wheezes, rales, stridor, chest wall tenderness, accessory muscle use, decreased breath sounds, prolonged expiratory - Cardiovascular Cardiovascular Exam: Present: regular rate, normal rhythm, normal heart sounds - GI/Abdominal GI/Abdominal exam: Present: soft, tenderness (Left lower quadrant and supra pubic tenderness.), normal bowel sounds. Absent: distended, guarding, rebound, rigid, organomegaly, mass, bruit, pulsatile mass, hernia - Extremities Exam Extremities exam: Present: normal inspection, full ROM, normal capillary refill. Absent: tenderness, pedal edema, calf tenderness - Back Exam Back exam: Present: normal inspection, full ROM. Absent: tenderness, CVA tenderness (R), CVA tenderness (L) - Neurological Exam Neurological exam: Present: alert, oriented X3, CN II-XII intact, normal gait, reflexes normal. Absent: motor sensory deficit - Psychiatric Psychiatric exam: Present: normal mood - Skin Skin exam: Present: warm, intact, normal color ED Course Vital Signs 06/17/19 23:43 Pulse Rate 71 Respiratory 18 Rate Blood Pressure 136/78 [Left] O2 Sat by Pulse 99 Oximetry ED Medical Decision Making - Lab Data Result diagrams: 06/17/19 22:53 06/17/19 22:53 - Radiology Data Radiology results: report reviewed - Medical Decision Making Patient is 43 years old female with history of hypertension, diabetes and a recent diagnosis of possible colon cancer. Patient presented to the ER complaining of increasing abdominal pain, nausea and vomiting started today. Patient stated that he she has been followed by her primary care physician who ordered CT abdomen and pelvis and PET scan before and now waiting for a colonoscopy but she was told that she has a possible colon cancer. Patient currently denying any fever or chills. Patient received normal saline, morphine, Zofran and Dilaudid for pain. Patient stated that she is feeling better. Labs reviewed and is unremarkable except for slightly elevated white blood cells. CT abdomen and pelvis with IV contrast showed no acute abnormality. It showed a left hydronephrosis with hydroureter but no stone. Possibility of recent passage of the stone. I discussed the patient with Dr. Jorge, advised that patient can be discharged and follow-up with him in his office. Patient also advised to return to the ER if she develop any new symptoms Critical care attestation.: If time is entered above; I have spent that time in minutes in the direct care of this critically ill patient, excluding procedure time. ED Disposition Clinical Impression: Abdominal pain Disposition: DC-01 TO HOME OR SELFCARE Is pt being admited?: No Condition: Stable Instructions: Abdominal Pain (ED) Referrals: PRIMARY CARE, [Primary Care Provider] - 3-5 Days
[2019-06-17 23:24] LABS: Basophils # (Auto) 0.1 K/mm3 (0.0-0.1); Basophils % (Auto) 0.6 % (0.0-1.8); Eosinophils # (Auto) 0.1 K/mm3 (0.0-0.4); Eosinophils % (Auto) 0.7 % (0.0-4.3); Hematocrit 34.5 % (30.3-42.9); Hemoglobin 11.3 gm/dl (10.1-14.3); Lymphocytes # (Auto) 2.1 K/mm3 (1.2-5.4); Lymphocytes % (Auto) 17.6 % (13.4-35.0); Mean Corpuscular HGB Conc 33 % (30-34); Mean Corpuscular Volume 83 fl (79-97); Monocytes # (Auto) 0.6 K/mm3 (0.0-0.8); Monocytes % (Auto) 5.5 % (0.0-7.3); Platelet Count 298 K/mm3 (140-440); Red Blood Count 4.16 M/mm3 (3.65-5.03); Red Cell Distribution Width 13.9 % (13.2-15.2)
[2019-06-17 23:47] LABS: Alanine Aminotransferase 14 units/L (7-56); Albumin 4.4 g/dL (3.9-5); BUN/Creatinine Ratio 20; Blood Urea Nitrogen 10 mg/dL (7-17); Calcium 9.3 mg/dL (8.4-10.2); Hemolysis Index 13
--- NOTE | 2019-06-18 01:02 | Cat Scan Report ---
CT abdomen pelvis w con INDICATION / CLINICAL INFORMATION: MAIN: abdominal pain 100cc of omnipaque 300 bolus . TECHNIQUE: All CT scans at this location are performed using CT dose reduction for ALARA by means of automated e xposure control. COMPARISON: 08/19/2016 FINDINGS: No free fluid is seen in the abdomen. Postsurgical changes seen in the upper abdomen in multiple loca tions. The gallbladder has been surgically removed. There is left-sided hydronephrosis and hydrourete r. Small stones are seen in the left kidney. The liver, spleen, pancreas, right adrenal gland and gre at vessels are normal. Small left adrenal nodule is unchanged in size or appearance from prior study dated 08/19/2016. In the pelvis, no free fluid is seen. No enlarged lymph nodes are identified. No definite stone is se en in the distal left ureter or the bladder. The bladder and the appendix are normal. No significant skeletal abnormality is identified. IMPRESSION: 1. Left-sided hydronephrosis and hydroureter without obvious stone present in the distal ureter. This could represent recent passage of stone. 2. Small stones in the left kidney 3. Postsurgical change in the abdomen with previous cholecystectomy 4. Small left adrenal nodule unchanged from 08/19/2016 Signer Name: Kory Reese MD FACR Signed: 06/18/2019 12:58 AM Workstation Name: [employer]
[2019-06-18] MEDS ORDERED: HYDROmorphone 1 MG/1 ML INJ ONE (01:03)
[2019-06-18] MEDS ORDERED: HYDROmorphone 1 MG/1 ML INJ IV ONE (01:04)
[2019-06-18 02:36] VITALS: BP 114/75
== END 2019-06-18 02:36 | disposition home or self-care (01) ==
LOC: ED 21:12
DX: R10.32 Left lower quadrant pain (principal); R11.2 Nausea with vomiting, unspecified; I10 Essential (primary) hypertension; E11.9 Type 2 diabetes mellitus without complications; G43.909 Migraine, unspecified, not intractable, without status migrainosus; N20.0 Calculus of kidney; Z90.49 Acquired absence of other specified parts of digestive tract; Z98.890 Other specified postprocedural states; Z79.899 Other long term (current) drug therapy
CPT/HCPCS: 36415; 74177; 80053; 81001; 83690; 84703; 85025; 86140; 96361; 96374; 96375; 99284; J1170; J2270; J2405; J7030; Q9967

== ENCOUNTER 2019-12-28 20:42 | Emergency (ER) | payer MEDICAID ==
[2019-12-28 21:14] VITALS: BP 134/87
[2019-12-28 22:00] LABS: Bilirubin,Urine NEG (Negative); Blood,Urine MOD (Negative); Color,Urine Straw (Yellow); Protein,Urine <15 mg/dL mg/dL (Negative); Urobilinogen,Urine < 2.0 mg/dL (<2.0)
[2019-12-28 22:00] LABS: Basophils # (Auto) 0.1 K/mm3 (0.0-0.1); Basophils % (Auto) 0.5 % (0.0-1.8); Eosinophils # (Auto) 0.2 K/mm3 (0.0-0.4); Eosinophils % (Auto) 1.9 % (0.0-4.3); Hematocrit 39.7 % (30.3-42.9); Hemoglobin 13.6 gm/dl (10.1-14.3); Lymphocytes # (Auto) 3.7 K/mm3 (1.2-5.4); Mean Corpuscular HGB Conc 34 % (30-34); Mean Corpuscular Volume 96 fl (79-97); Monocytes # (Auto) 0.7 K/mm3 (0.0-0.8); Platelet Count 222 K/mm3 (140-440); Red Blood Count 4.15 M/mm3 (3.65-5.03); Red Cell Distribution Width 12.2 % (13.2-15.2)
[2019-12-28 22:23] LABS: Alanine Aminotransferase 18 units/L (7-56); Albumin 4.5 g/dL (3.9-5); Blood Urea Nitrogen 10 mg/dL (7-17); Hemolysis Index 36
[2019-12-28] MEDS ORDERED: MORPHINE 4 MG/1 ML INJ IV ONE (22:26)
[2019-12-28] MEDS ORDERED: ONDANSETRON 4 MG/2 ML INJ IV ONE ×2 (22:26→23:30)
[2019-12-28] MEDS ORDERED: SODIUM CHLORIDE 0.9% 1000 ML 1,000 ML IV ONE (22:26)
[2019-12-28] MEDS ORDERED: diphenhydrAMINE 50 MG/ML VIAL IV ONE (22:27)
[2019-12-28 22:29] LABS: BUN/Creatinine Ratio 25
[2019-12-28] MEDS ORDERED: HYDROmorphone 1 MG/1 ML INJ IV ONE (23:30)
[2019-12-28] MEDS ORDERED: METOCLOPRAMIDE 10 MG/2 ML INJ IV ONE (23:30)
--- NOTE | 2019-12-28 23:32 | Emergency Department Report ---
ED General Adult HPI - General Chief complaint: Abdominal Pain Stated complaint: PANCREAS PAIN VOMITING Time Seen by Provider: 12/28/19 22:13 Source: patient Mode of arrival: Ambulatory Limitations: No Limitations - History of Present Illness Initial comments: The patient presents to the emergency department the chief complaint of abdominal pain that started at approximately 7 PM today. Patient states she has a history of chronic pancreatitis and this feels like an exacerbations. Patient states she does not have a gallbladder and denies a history of alcohol abuse. Patient denies any chest pain, shortness of breath, or abdominal pain. -: Sudden Location: abdomen Radiation: non-radiation Severity scale (0 -10): 10 Quality: aching Consistency: constant Improves with: none Worsens with: none Associated Symptoms: denies other symptoms Treatments Prior to Arrival: none - Related Data Home Medications Medication Instructions Recorded Confirmed Last Taken Naproxen Sodium [Aleve TAB] 220 mg PO Q8H PRN 12/03/16 12/03/16 12/01/16 Previous Rx's Medication Instructions Recorded Last Taken Type HYDROcodone/APAP 5-325 [[place] 1 each PO Q6HR PRN #14 tablet 06/18/19 Unknown Rx 5/325] Ondansetron [Zofran Odt] 4 mg PO Q8HR PRN #14 tab.rapdis 06/18/19 Unknown Rx HYDROcodone/APAP 10-325 [[place] 1 each PO Q6HR PRN #24 tablet 12/28/19 Unknown Rx 10/325] Ondansetron [Zofran Odt] 4 mg PO Q4HR PRN #20 tab.rapdis 12/28/19 Unknown Rx Promethazine [Phenergan TAB] 25 mg PO Q6HR PRN #20 tab 12/28/19 Unknown Rx Allergies Allergy/AdvReac Type Severity Reaction Status Date / Time No Known Allergies Allergy Verified 12/01/16 09:30 ED Review of Systems ROS: Stated complaint: PANCREAS PAIN VOMITING Other details as noted in HPI Constitutional: denies: chills, fever Eyes: denies: eye pain, eye discharge, vision change ENT: denies: ear pain, throat pain Respiratory: denies: cough, shortness of breath, wheezing Cardiovascular: denies: chest pain, palpitations Endocrine: no symptoms reported Gastrointestinal: abdominal pain. denies: nausea, diarrhea Genitourinary: denies: urgency, dysuria, discharge Musculoskeletal: denies: back pain, joint swelling, arthralgia Skin: denies: rash, lesions Neurological: denies: headache, weakness, paresthesias Psychiatric: denies: anxiety, depression Hematological/Lymphatic: denies: easy bleeding, easy bruising ED Past Medical Hx - Past Medical History Previous Medical History?: Yes Hx Hypertension: Yes (PIH) Hx CVA: No Hx Heart Attack/AMI: No Hx Congestive Heart Failure: No Hx Diabetes: Yes (diet controlled) Hx Deep Vein Thrombosis: No Hx Pulmonary Embolism: No Hx GERD: No Hx Liver Disease: Yes (hx chronic pancreatitis last 2 mths ago) Hx Renal Disease: Yes (ureteral stone; pt has occluded stent) Hx Sickle Cell Disease: No Hx Arthritis: No Hx Headaches / Migraines: Yes (migraines) Hx Seizures: No Hx Kidney Stones: Yes Hx Psychiatric Treatment: No Hx COPD: No Hx Dementia: No Hx HIV: No Additional medical history: Chronic pancreatitis, chronic renal insufficiency, Jaundice, Anemia - Surgical History Past Surgical History?: Yes Hx Coronary Stent: No Hx Open Heart Surgery: No Hx Pacemaker: Yes Hx Cholecystectomy: Yes (Age 17) Hx Appendectomy: No Hx Breast Surgery: No Additional Surgical History: 3 x kindey stent replaced (Dr Connor), 3 hernia repairs, surgery for adhesions, Pancrease - Social History Smoking Status: Never Smoker Substance Use Type: None - Medications Home Medications: Home Medications Medication Instructions Recorded Confirmed Last Taken Type Naproxen Sodium [Aleve TAB] 220 mg PO Q8H PRN 12/03/16 12/03/16 12/01/16 History HYDROcodone/APAP 5-325 [[place] 1 each PO Q6HR PRN #14 tablet 06/18/19 Unknown Rx 5/325] Ondansetron [Zofran Odt] 4 mg PO Q8HR PRN #14 tab.rapdis 06/18/19 Unknown Rx HYDROcodone/APAP 10-325 [[place] 1 each PO Q6HR PRN #24 tablet 12/28/19 Unknown Rx 10/325] Ondansetron [Zofran Odt] 4 mg PO Q4HR PRN #20 tab.rapdis 12/28/19 Unknown Rx Promethazine [Phenergan TAB] 25 mg PO Q6HR PRN #20 tab 10/01/20 Unknown Rx ED Physical Exam - General Limitations: No Limitations General appearance: alert, in no apparent distress - Head Head exam: Present: atraumatic, normocephalic - Eye Eye exam: Present: normal appearance, PERRL, EOMI - ENT ENT exam: Present: mucous membranes moist - Neck Neck exam: Present: normal inspection - Respiratory Respiratory exam: Present: normal lung sounds bilaterally. Absent: respiratory distress - Cardiovascular Cardiovascular Exam: Present: regular rate, normal rhythm. Absent: systolic murmur, diastolic murmur, rubs, gallop - GI/Abdominal GI/Abdominal exam: Present: soft, normal bowel sounds. Absent: distended, tenderness - Extremities Exam Extremities exam: Present: normal inspection - Back Exam Back exam: Present: normal inspection - Neurological Exam Neurological exam: Present: alert, oriented X3, CN II-XII intact. Absent: motor sensory deficit - Psychiatric Psychiatric exam: Present: normal affect, normal mood - Skin Skin exam: Present: warm, dry, intact, normal color. Absent: rash ED Course Vital Signs 12/28/19 21:05 Temperature 98.8 F Pulse Rate 74 Respiratory 20 Rate Blood Pressure 134/87 O2 Sat by Pulse 98 Oximetry ED Medical Decision Making - Lab Data Result diagrams: 12/28/19 21:22 12/28/19 21:22 Lab Results 12/28/19 12/28/19 12/28/19 Range/Units 21:22 21:22 21:22 WBC 11.9 H (4.5-11.0) K/mm3 RBC 4.15 (3.65-5.03) M/mm3 Hgb 13.6 (10.1-14.3) gm/dl Hct 39.7 (30.3-42.9) % MCV 96 (79-97) fl MCH 33 H (28-32) pg MCHC 34 (30-34) % RDW 12.2 L (13.2-15.2) % Plt Count 222 (140-440) K/mm3 Lymph % (Auto) 31.0 (13.4-35.0) % [place] % (Auto) 6.0 (0.0-7.3) % Eos % (Auto) 1.9 (0.0-4.3) % Baso % (Auto) 0.5 (0.0-1.8) % Lymph # (Auto) 3.7 (1.2-5.4) K/mm3 [place] # (Auto) 0.7 (0.0-0.8) K/mm3 Eos # (Auto) 0.2 (0.0-0.4) K/mm3 Baso # (Auto) 0.1 (0.0-0.1) K/mm3 Seg Neutrophils % 60.6 (40.0-70.0) % Seg Neutrophils # 7.2 (1.8-7.7) K/mm3 Sodium 138 (137-145) mmol/L Potassium 4.1 (3.6-5.0) mmol/L Chloride 100.4 (98-107) mmol/L Carbon Dioxide 22 (22-30) mmol/L Anion Gap 20 mmol/L BUN 10 (7-17) mg/dL Creatinine 0.4 L (0.6-1.2) mg/dL Estimated GFR > 60 ml/min BUN/Creatinine Ratio 25 % Glucose 112 H (65-100) mg/dL Calcium 9.0 (8.4-10.2) mg/dL Total Bilirubin 0.20 (0.1-1.2) mg/dL AST 20 (5-40) units/L ALT 18 (7-56) units/L Alkaline Phosphatase 92 (35-129) units/L Total Protein 7.7 (6.3-8.2) g/dL Albumin 4.5 (3.9-5) g/dL Albumin/Globulin Ratio 1.4 % Lipase 43 (13-60) units/L HCG, Qual Negative (Negative) Urine Color (Yellow) Urine Turbidity (Clear) Urine pH (5.0-7.0) Ur Specific [place] (1.003-1.030) Urine Protein (Negative) mg/dL Urine Glucose (UA) (Negative) mg/dL Urine Ketones (Negative) mg/dL Urine Blood (Negative) Urine Nitrite (Negative) Urine Bilirubin (Negative) Urine Urobilinogen (<2.0) mg/dL Ur Leukocyte Esterase (Negative) Urine WBC (Auto) (0.0-6.0) /HPF Urine RBC (Auto) (0.0-6.0) /HPF U Epithel Cells (Auto) (0-13.0) /HPF 12/27/20 Range/Units Unknown WBC (4.5-11.0) K/mm3 RBC (3.65-5.03) M/mm3 Hgb (10.1-14.3) gm/dl Hct (30.3-42.9) % MCV (79-97) fl MCH (28-32) pg MCHC (30-34) % RDW (13.2-15.2) % Plt Count (140-440) K/mm3 Lymph % (Auto) (13.4-35.0) % [place] % (Auto) (0.0-7.3) % Eos % (Auto) (0.0-4.3) % Baso % (Auto) (0.0-1.8) % Lymph # (Auto) (1.2-5.4) K/mm3 [place] # (Auto) (0.0-0.8) K/mm3 Eos # (Auto) (0.0-0.4) K/mm3 Baso # (Auto) (0.0-0.1) K/mm3 Seg Neutrophils % (40.0-70.0) % Seg Neutrophils # (1.8-7.7) K/mm3 Sodium (137-145) mmol/L Potassium (3.6-5.0) mmol/L Chloride (98-107) mmol/L Carbon Dioxide (22-30) mmol/L Anion Gap mmol/L BUN (7-17) mg/dL Creatinine (0.6-1.2) mg/dL Estimated GFR ml/min BUN/Creatinine Ratio % Glucose (65-100) mg/dL Calcium (8.4-10.2) mg/dL Total Bilirubin (0.1-1.2) mg/dL AST (5-40) units/L ALT (7-56) units/L Alkaline Phosphatase (35-129) units/L Total Protein (6.3-8.2) g/dL Albumin (3.9-5) g/dL Albumin/Globulin Ratio % Lipase (13-60) units/L HCG, Qual (Negative) Urine Color Straw (Yellow) Urine Turbidity Clear (Clear) Urine pH 6.0 (5.0-7.0) Ur Specific [place] 1.006 (1.003-1.030) Urine Protein <15 mg/dl (Negative) mg/dL Urine Glucose (UA) Neg (Negative) mg/dL Urine Ketones Neg (Negative) mg/dL Urine Blood Mod (Negative) Urine Nitrite Neg (Negative) Urine Bilirubin Neg (Negative) Urine Urobilinogen < 2.0 (<2.0) mg/dL Ur Leukocyte Esterase Neg (Negative) Urine WBC (Auto) 1.0 (0.0-6.0) /HPF Urine RBC (Auto) 2.0 (0.0-6.0) /HPF U Epithel Cells (Auto) < 1.0 (0-13.0) /HPF - EKG Data -: EKG Interpreted by Me EKG shows normal: sinus rhythm Rate: normal - Radiology Data Radiology results: report reviewed - Medical Decision Making Discussed results with patient Patient had relief of symptoms with medication Critical care attestation.: If time is entered above; I have spent that time in minutes in the direct care of this critically ill patient, excluding procedure time. ED Disposition Clinical Impression: Abdominal pain Disposition: DC-01 TO HOME OR SELFCARE Is pt being admited?: No Does the pt Need Aspirin: No Condition: Stable Instructions: Abdominal Pain (ED) Additional Instructions: return if worse Referrals: PRIMARY MD ROSE [Primary Care Provider] - 3-5 Days OLGA COELHO MD [Staff Physician] - 3-5 Days Time of Disposition: 23:54
== END 2019-12-29 00:01 | disposition home or self-care (01) ==
LOC: ED 20:42
DX: R10.9 Unspecified abdominal pain (principal); I10 Essential (primary) hypertension; E11.9 Type 2 diabetes mellitus without complications; G43.909 Migraine, unspecified, not intractable, without status migrainosus; K86.1 Other chronic pancreatitis; Z87.448 Personal history of other diseases of urinary system; Z90.49 Acquired absence of other specified parts of digestive tract; Z98.890 Other specified postprocedural states; Z79.899 Other long term (current) drug therapy
CPT/HCPCS: 36415; 80053; 81001; 83690; 84703; 85025; 93005; 96361; 96374; 96375; 96376; 99283; J1170; J1200; J2270; J2405; J2765; J7030